=== PATIENT | male | born 1965 | race Caucasian/White ===

== ENCOUNTER 2019-08-13 01:09 | Emergency (ER) | payer SELFPAY ==
[2019-08-13] MEDS: hydrALAZINE HCL 20 MG/1 ML IVP ONE (01:50)
--- NOTE | 2019-08-13 01:54 | ED Physician Documentation ---
Seizure - HISTORIAN Historian: patient - HPI Stated Complaint: Seizure Chief Complaint: Seizure Additional Information: Patient presents to ED from [facility] after possibly having a seizure. Patient reports his room mate heard him gurgling in his sleep and could not wake him up around midnight. On 08/06/19 patient fell and broke his nose, was evaluated in ED with CT head. On 08/07/19 patient was at home, when he had an episode which he describes as a vasovagal episode. He reports standing up feeling light-headed, broke out in a sweat and fell to the floor. Patient reports seizure like activity, however, patient remembers the entire episode. He had a CT head at that point. He was hospitalized on 08/07/19 for detox from alcohol and did not have any seizures while he was detoxing nor has he ever had seizures in the past. Patient reports drinking a fifith of bourbon daily for many years. He smokes 1-2 packs of cigarettes per day. Timing/Onset/Duration: unknown duration, unknown number Last known Well Date: 08/12/19 Last Known Well Time: 23:50 Last known Well Code/Unknown Code: Known Witnessed By: bystander Preceding Symptoms: none Activity Prior to Seizure: sleeping Character of Seizure(s): other (gurgling, difficult to wake ) Postictal Symptoms: none Location of Injury: none - ROS NEURO/PSYCH: denies: headache, dizziness EYES/ENT: denies: problems with vision CVS/RESP: denies: chest pain, shortness of breath GI/: denies: nausea, vomiting MS/SKIN/LYMPH: none - PAST HX Previous seizure/seizure disorder: none Etiology: other (unsure) Other History: none Surgeries/Procedures: none Allergies/Adverse Reactions: Allergies Allergy/AdvReac Type Severity Reaction Status Date / Time flaxseed Allergy Unknown Verified 08/13/19 02:29 iodine Allergy Unknown Verified 08/13/19 02:29 lisinopril Allergy Unknown Verified 08/13/19 02:29 shellfish derived Allergy Unknown Verified 08/13/19 02:29 Home Medications: Ambulatory Orders Medication Instructions Recorded Amoxicillin 1,000 mg PO Q8 08/13/19 Fluticasone Propionate [Flonase] 1 spray INH BID 08/13/19 Gabapentin 300 mg PO TID 08/13/19 Guaifenesin [Mucinex] 600 mg PO BID 08/13/19 Levothyroxine Sodium [Levo-T] 125 mcg PO ONCE 08/13/19 Loratadine 10 mg PO DAILY 08/13/19 Montelukast Sodium [Singulair] 10 mg PO HS 08/13/19 Verapamil HCl [Verapamil Sr] 240 mg PO HS 08/13/19 diphenhydrAMINE HCL [Benadryl] 50 mg PO HS 08/13/19 - SOCIAL HX Smoking History: cigarettes, greater than 1 pack/day Alcohol Use: none Drug Use: none - FAMILY HX Family History: none - VITAL SIGNS Vital Signs: Vital Signs Temp Pulse Resp BP Pulse Ox 100.2 F H 105 H 174/109 96 08/13/19 01:10 08/13/19 01:10 08/13/19 01:10 08/13/19 01:10 - REVIEWED ASSESSMENTS Nursing Assessment Reviewed: Yes Vitals Reviewed: Yes ED Results Lab/Radiology - Lab Results Lab Results: WBc 6.1, Hgb 11.7, Hct 35.7, Plt 137 CMP Na+ 139, K+3.7, Cl 105, Co2 26, Glucose 111, Bun 12, Cr 0.73, Alt 199, AST 143, Alk Phs 127 - Radiology Radiology Impressions: Report Submission Date: Aug 13, 2019 1:57:01 AM C DEVELOPER Patient Study Name: DELIO MOMIN Date: Aug 13, 2019 1:41:47 AM C DEVELOPER Modality Type: CT\SR Gender: M Description: CT BRAIN W/O CONTRAST : 67 Institution: [facility] Physician: ORION FARIAS EXAMINATION: CT BRAIN W/O CONTRAST HISTORY: POSSIBLE SEIZURE (Hx) / ITS.REASON possible seizure Note time : 08/13/2019 1:55:08 AM User : Kian Mcpherson POSSIBLE SEIZURE (DICOM Hx) (DICOM Hx) TECHNIQUE: CT of the head was performed without contrast according to standard protocol. COMPARISON: None FINDINGS: No acute intra- or extra-axial fluid collections are identified. There is mild cerebral volume loss with associated ex vacuo ventricular dilatation. The basilar cisterns are patent. No mass effect or midline shift is seen. The blanchard- white matter differentiation is normal. Other than mild paranasal sinus disease, the visible portions of the orbits, paranasal sinuses, and mastoids appear normal. No acute fracture is identified. IMPRESSION: 1. No acute intracranial process. Electronically signed on Aug 13, 2019 1:57:01 AM C DEVELOPER by: Darrell Madrid Report Submission Date: Aug 13, 2019 2:55:23 AM C DEVELOPER Patient Study Name: DELIO MOMIN Date: Aug 13, 2019 2:35:12 AM C DEVELOPER Modality Type: DX Gender: M Description: CHEST 1VIEW : 67 Institution: [facility] Physician: ORION FARIAS EXAMINATION: CHEST 1VIEW HISTORY: FEVER (Hx) / Note time : 08/13/2019 2:54:05 AM User : Kian Mcpherson FEVER (DICOM Hx) (DICOM Hx) COMPARISON: None FINDINGS: There is no focal consolidation, pleural effusion, or pneumothorax. The cardiomediastinal silhouette is normal. The visible bony thorax is intact. IMPRESSION: No acute pulmonary process. Electronically signed on Aug 13, 2019 2:55:23 AM C DEVELOPER by: Darrell Madrid - Orders Orders: ED Orders Category Date Time Status Place IV Lock 1T Care 08/13/19 01:36 Active CHEST 1VIEW [RAD] Stat Exams 08/13/[address] BRAIN W/O CONTRAST Stat Exams 08/13/19 Completed CBC/PLATELET/DIFF Routine Lab 08/13/19 02:42 Received CMP Routine Lab 08/13/19 02:42 Received hydrALAZINE HCL [Apresoline] Med 08/13/19 01:36 Discontinued 10 mg IVP NOW ONE Seizure Physical Exam - Physical Exam General Appearance: alert Altered Mental Status Higher Functions: oriented x3, no evidence of acute CVA EENT: PERRL, ecchymosis (periorbital) Neck/Back: supple Respiratory: no resp. distress, rhonchi (bilaterally) CVS: reg rate & rhythm Abdomen: non-tender Skin: warm/dry, normal color Extremities: normal range of motion, no pedal edema Observed Seizure Activity in ED: other (none) - Nexus Criteria Neg Nexus Criteria: Nexus criteria neg Discharge Clincal Impression: Seizure-like activity, Accelerated hypertension Referrals: Primary Doctor,No [Primary Care Provider] - 2 Days Additional Instructions: 1. Hydralazine 25mg every 8 hours as needed for blood pressure > 160 systolic or > 90 diastolic 2. Drink plenty of fluids to maintain proper hydration. Avoid caffeine 3. Follow up with PCP within 1 week. Discuss sleep apnea and possible sleep study 4. Return to ER for new or worsening symptoms Condition: Stable Disposition: 01 HOME, SELF-CARE Decision to Admit: NO Date of Decison to Admit: 08/13/19 Decision Time: 03:14
--- NOTE | 2019-08-13 02:01 | Diagnostic Imaging Report ---
PATIENT MR#: [id number] PATIENT PATIENT NAME: DELIO MOMIN DATE OF : 1965 REFERRING PHYSICIAN: Salina Barreto EXAM DATE: 08/13/2019 ACCESSION NUMBER: [id number] EXAM DESCRIPTION: CT BRAIN W/O CONTRAST EXAMINATION: CT BRAIN W/O CONTRAST time : 08/13/2019 1:55:08 AM User : Kian Mcpherson POSSIBLE SEIZURE (DICOM Hx) (DICOM Hx) TECHNIQUE: CT of the head was performed without contrast according to standard protocol. COMPARISON: None FINDINGS: No acute intra- or extra-axial fluid collections are identified. There is mild cerebral volume loss w ith associated ex vacuo ventricular dilatation. The basilar cisterns are patent. No mass effect or midline shift is see n. The blanchard-white matter differentiation is normal. Other than mild paranasal sinus disease, the visible portions of th e orbits, paranasal sinuses, and mastoids appear normal. No acute fracture is identified. IMPRESSION: 1. No acute intracranial process. Read by: Darrell Madrid Transcribed by: Transcribed Date: Electronically signed by: Darrell Madrid Date signed: 08/13/2019 2:00:39 AM
--- NOTE | 2019-08-13 02:59 | Diagnostic Imaging Report ---
PATIENT MR#: [id number] PATIENT PATIENT NAME: DELIO MOMIN DATE OF : 1965 REFERRING PHYSICIAN: Salina Barreto EXAM DATE: 08/13/2019 ACCESSION NUMBER: [id number] EXAM DESCRIPTION: CHEST 1VIEW EXAMINATION: CHEST 1VIEW HISTORY: FEVER (Hx) / Note time : 08/13/2019 2:54: 05 AM User : Kian Mcpherson FEVER (DICOM Hx) (DICOM Hx) COMPARISON: None FINDINGS: There is no focal consolidation, pleural effusion, or pneumothorax. The cardiomediastinal silhouette is normal. The visible bony thorax is intact. IMPRESSION: No acute pulmonary process. Read by: Darrell Madrid Transcribed by: Transcribed Date: Electronically signed by: Darrell Madrid Date signed: 08/13/2019 2:58:39 AM
[2019-08-13] MEDS: LEVETIRACETAM IV ONE (03:38)
[2019-08-13] MEDS: SODIUM CHLORIDE 0.9% IV ONE (03:38)
[2019-08-13] MEDS: LORazepam 2 MG/ML VIAL IV ONE (03:40)
[2019-08-13 05:14] VITALS: BP 153/91
[2019-08-13 07:05] LABS: eGFR (Non-African) > 60
[2019-08-13 07:08] LABS: BASOPHILS % 0.3 % (0.0-1.5)
== END 2019-08-13 04:35 | disposition home or self-care (01) ==
LOC: ED 01:09
DX: R56.9 Unspecified convulsions (principal); R03.0 Elevated blood-pressure reading, without diagnosis of hypertension
CPT/HCPCS: 70450; 71045; 80053; 85025; 96361; 96374; 96375; 99282; 99284; J0360; J2060; S1016